=== PATIENT | female | born 1950 | race African-American/Black ===

== ENCOUNTER 2020-10-20 15:58 | Emergency (ER) | payer MEDICARE, MEDICAID ==
[~2020-10-20] VITALS: Ht 165.1 cm; Wt 50.5 kg
[~2020-10-20 15:58] MED LIST: 00186-0370-20 IH; ACIDOPHILIS PO; ALBUTEROL0.83 MG/ML IH; APRESOLINE 10MG10 MG PO; APRESOLINE 25MG25 MG PO; ASPIRIN E.C. 8181 MG PO; ATROVENT I0.2 MG/1 M IH; CALCIUM 600-D 61 TAB PO; CARDURA4 MG PO; CLARITIN 1010 MG/TAB PO; COLACE 100100 MG/CAP PO; COREG12.5 MG PO; EFFEXOR XR37.5 MG/CA PO; EFFEXOR XR75 MG/CAP PO; ESTRACE0.5 MG PO; FERRO-TIME325 MG PO; FLONASEALLERGY NS; FOLIC ACID 11 MG/TA1 PO; GENTLE LAXATIVE10 MG RC; IPRATROPIUM BROM3 M1 IH; K-DUR20 MEQ PO; LASIX 20MG TABL20 MG PO; LEVAQUIN 5500 MG/TA1 PO; LIPITOR 40MG TA40 MG PO; LOPRESSOR 550 MG/TAB PO; MASON NATURAL2000 IU PO; MELATONIN1 MG PO; MIRALAX PA17 GM/Dose PO; MOTRIN 200200 MG/TAB PO; MUCINEX 60600 MG/TA1 PO; NEURONTIN100 MG/CAP PO; NEXIUM 20MG20 MG PO; NITROSTAT0.4 MG/TAB SL; NORCO 325 MG-51 TAB PO; NORVASC 10MG10 MG PO; OSCAL 500 TAB500 MG PO; PERFOROMIS20 MCG/2 M IH; PREDNISONE10 MG PO; PRILOSEC 20MG20 MG PO; PRILOTC PO; PROCARDIA XL90 MG PO; PROTONIX 40MG T40 MG PO; PULMICORT0.5 MG/2 M IH; SINGULAIR 110 MG/TAB PO; TYLENOL 500MG500 MG PO; VENTOLIN0.09 MG IH; VITAMIN D32000 I1 PO; VITAMIN E 400 U4001 PO; ZITHROMAX Z PA250 MG PO
[2020-10-20 16:37] LABS: COLLECTION METHOD CLEAN CATCH
[2020-10-20 16:46] LABS: MUCOUS Present /lpf; PH 5 (5-8); SQUAMOUS EPITHELIAL 20-50 /hpf; URINE APPEARANCE Cloudy; URINE BACTERIA Rare /hpf; URINE BILIRUBIN Negative (NEGATIVE); URINE BLOOD Negative (NEGATIVE); URINE COLOR Yellow; URINE GLUCOSE Negative (NEGATIVE); URINE KETONE Negative (NEGATIVE); URINE LEUKOCYTE ESTERASE Negative (NEGATIVE); URINE NITRATE Negative (NEGATIVE); URINE PROTEIN(semi-quant) 2+ (NEGATIVE)
[2020-10-20] MEDS ORDERED: CEPHALEXIN500 M1 PO (17:30)
[2020-10-20 18:40] VITALS: BP 128/73; PULSE 78; TEMP 98.1
== END 2020-10-20 18:40 | disposition home or self-care (01) ==
LOC: COL.ER 15:58
PROVIDERS: Nurse Practitioner Primary Care
DX: N39.0 Urinary tract infection, site not specified (principal); I13.0 Hypertensive heart and chronic kidney disease with heart failure and stage 1 through stage 4 chronic kidney disease, or unspecified chronic kidney disease; N18.9 Chronic kidney disease, unspecified; J44.9 Chronic obstructive pulmonary disease, unspecified; D64.9 Anemia, unspecified; Z88.0 Allergy status to penicillin; Z88.6 Allergy status to analgesic agent; Z88.1 Allergy status to other antibiotic agents; Z88.8 Allergy status to other drugs, medicaments and biological substances; Z79.82 Long term (current) use of aspirin; Z79.51 Long term (current) use of inhaled steroids; F17.210 Nicotine dependence, cigarettes, uncomplicated

== ENCOUNTER 2020-12-16 14:24 | Emergency (ER) | payer MEDICARE, MEDICAID ==
[~2020-12-16] VITALS: Ht 165.1 cm; Wt 54.1 kg
[~2020-12-16 14:24] MED LIST changes: +CEPHALEXIN500 M1 PO
[2020-12-16 14:30] VITALS: TEMP 98.3
[2020-12-16 15:27] LABS: BASO % 0.3 % (0.0-2.0); EOS # 0.2 (0.0-0.7); EOS % 2.1 % (0-4.0); GRAN # 5.1 (1.4-6.5); GRAN % 66.7 % (42.2-75.2); HEMATOCRIT 32.9 % (37.0-47.0); HEMOGLOBIN 10.6 g/dl (12.5-16.0); LYMPH # 1.1 (1.2-3.4); LYMPH % 14.9 % (20.0-51.0); MEAN CELL VOLUME 86 fl (80.0-100.0); MEAN CORPUSCULAR HEMOGLOBIN 28 pg (27.0-31.0); MEAN CORPUSCULAR HGB CONC 32 g/dl (33.0-37.0); MEAN PLATELET VOLUME 11.7 fl (7.4-10.4); MONO # 1.2 (0.1-0.6); MONO % 15.7 % (1.7-9.3); PLATELET COUNT 197 K/mm3 (130-400); RED BLOOD COUNT 3.85 M/mm3 (4.10-5.30); REDCELL DISTRIBUTION WIDTH-CV 17.6 % (11.5-14.5)
[2020-12-16 15:46] LABS: ALBUMIN 3.4 gm/dL (3.5-5.0); BILIRUBIN,TOTAL 0.8 mg/dL (0.0-1.0); CALCIUM 8.7 mg/dL (8.4-10.2); CREATININE, serum 4.28 (0.52-1.25); POTASSIUM 4.6 mmol/L (3.4-5.0); TOTAL PROTEIN 6.6 gm/dL (6.4-8.2)
[2020-12-16 15:47] LABS: C-REACTIVE PROTEIN 0.5 mg/dL (0.0-0.9)
[2020-12-16 16:03] VITALS: BP 164/88; PULSE 83
== END 2020-12-16 16:03 | disposition home or self-care (01) ==
LOC: COL.ER 14:24
PROVIDERS: Nurse Practitioner Primary Care
DX: M79.601 Pain in right arm (principal); I12.0 Hypertensive chronic kidney disease with stage 5 chronic kidney disease or end stage renal disease; D63.1 Anemia in chronic kidney disease; N18.6 End stage renal disease; J44.9 Chronic obstructive pulmonary disease, unspecified; E78.5 Hyperlipidemia, unspecified; K21.9 Gastro-esophageal reflux disease without esophagitis; I25.2 Old myocardial infarction; F17.200 Nicotine dependence, unspecified, uncomplicated; Z99.2 Dependence on renal dialysis; Z88.0 Allergy status to penicillin; Z88.5 Allergy status to narcotic agent; Z88.1 Allergy status to other antibiotic agents; Z88.8 Allergy status to other drugs, medicaments and biological substances; Z79.82 Long term (current) use of aspirin; Z79.899 Other long term (current) drug therapy; Z79.51 Long term (current) use of inhaled steroids

== ENCOUNTER → 2021-01-07 | Outpatient (CLI) | payer MEDICARE, MEDICAID ==
[2021-01-07 12:43] LABS: HEMOGLOBIN 11.3 g/dl (12.5-16.0)
[2021-01-07 12:45] LABS: HEMATOCRIT 36.6 % (37.0-47.0)
== END ==
LOC: ZCOL.LAB 11:47
PROVIDERS: Internal Medicine Nephrology
DX: N18.6 End stage renal disease (principal)

== ENCOUNTER → 2021-01-14 | Outpatient (CLI) | payer MEDICARE, MEDICAID | LOC: ZCOL.LAB 16:05 | DX: I13.2 Hypertensive heart and chronic kidney disease with heart failure and with stage 5 chronic kidney disease, or end stage renal disease (principal) ==

== ENCOUNTER 2021-02-04 08:14 | Emergency (ER) | payer MEDICARE, MEDICAID ==
[~2021-02-04] VITALS: Ht 165.1 cm; Wt 51.8 kg
[2021-02-04 08:22] VITALS: TEMP 97.7
[2021-02-04 09:52] LABS: BASO % 0.5 % (0.0-2.0); EOS # 0.2 (0.0-0.7); EOS % 2.6 % (0-4.0); GRAN # 4.7 (1.4-6.5); GRAN % 70.8 % (42.2-75.2); LYMPH # 0.8 (1.2-3.4); LYMPH % 11.8 % (20.0-51.0); MEAN CELL VOLUME 85 fl (80.0-100.0); MEAN CORPUSCULAR HGB CONC 32 g/dl (33.0-37.0); MEAN PLATELET VOLUME 11.4 fl (7.4-10.4); MONO # 0.9 (0.1-0.6); PLATELET COUNT 189 K/mm3 (130-400); RED BLOOD COUNT 3.27 M/mm3 (4.10-5.30); REDCELL DISTRIBUTION WIDTH-CV 16.8 % (11.5-14.5)
[2021-02-04 09:53] LABS: HEMATOCRIT 27.8 % (37.0-47.0); HEMOGLOBIN 8.9 g/dl (12.5-16.0); MEAN CORPUSCULAR HEMOGLOBIN 27 pg (27.0-31.0)
[2021-02-04 10:01] LABS: ALBUMIN 2.9 gm/dL (3.5-5.0); CALCIUM 8.3 mg/dL (8.4-10.2); CREATININE, serum 3.55 (0.52-1.25); TOTAL PROTEIN 5.9 gm/dL (6.4-8.2)
[2021-02-04 11:19] VITALS: BP 200/78; PULSE 59
== END 2021-02-04 11:19 | disposition home or self-care (01) ==
LOC: COL.ER 08:14
PROVIDERS: Family Medicine
DX: R41.82 Altered mental status, unspecified (principal); R45.82 Worries; L98.8 Other specified disorders of the skin and subcutaneous tissue; D63.1 Anemia in chronic kidney disease; I12.0 Hypertensive chronic kidney disease with stage 5 chronic kidney disease or end stage renal disease; N18.6 End stage renal disease; E78.5 Hyperlipidemia, unspecified; J44.9 Chronic obstructive pulmonary disease, unspecified; I25.2 Old myocardial infarction; K21.9 Gastro-esophageal reflux disease without esophagitis; Z99.2 Dependence on renal dialysis; Z99.81 Dependence on supplemental oxygen; Z79.82 Long term (current) use of aspirin; Z79.51 Long term (current) use of inhaled steroids; Z79.899 Other long term (current) drug therapy

== ENCOUNTER 2021-02-18 03:35 | Emergency (ER) | payer MEDICARE, MEDICAID ==
[~2021-02-18] VITALS: Ht 165.1 cm; Wt 51.4 kg
[2021-02-18 03:40] VITALS: TEMP 98.1
[2021-02-18 03:59] LABS: BASO % 0.4 % (0.0-2.0); EOS # 0.2 (0.0-0.7); GRAN # 4.8 (1.4-6.5); GRAN % 65.5 % (42.2-75.2); LYMPH # 1.1 (1.2-3.4); LYMPH % 14.4 % (20.0-51.0); MEAN CELL VOLUME 89 fl (80.0-100.0); MEAN CORPUSCULAR HGB CONC 31 g/dl (33.0-37.0); MEAN PLATELET VOLUME 11.4 fl (7.4-10.4); MONO # 1.2 (0.1-0.6); MONO % 16.3 % (1.7-9.3); PLATELET COUNT 219 K/mm3 (130-400); RED BLOOD COUNT 2.98 M/mm3 (4.10-5.30); REDCELL DISTRIBUTION WIDTH-CV 17.2 % (11.5-14.5)
[2021-02-18 04:00] LABS: HEMATOCRIT 26.4 % (37.0-47.0); HEMOGLOBIN 8.3 g/dl (12.5-16.0); MEAN CORPUSCULAR HEMOGLOBIN 28 pg (27.0-31.0)
[2021-02-18 04:12] LABS: ALBUMIN 2.9 gm/dL (3.5-5.0); BILIRUBIN,TOTAL 1.2 mg/dL (0.0-1.0); CALCIUM 8.8 mg/dL (8.4-10.2); CREATININE, serum 3.35 (0.52-1.25); POTASSIUM 3.9 mmol/L (3.4-5.0); TOTAL PROTEIN 6.1 gm/dL (6.4-8.2)
[2021-02-18 06:06] VITALS: BP 193/77; PULSE 64
== END 2021-02-18 06:06 | disposition home or self-care (01) ==
LOC: COL.ER 03:35
PROVIDERS: Personal Emergency Response Attendant
DX: R41.82 Altered mental status, unspecified (principal); S50.11XA Contusion of right forearm, initial encounter; J44.9 Chronic obstructive pulmonary disease, unspecified; E78.5 Hyperlipidemia, unspecified; I12.0 Hypertensive chronic kidney disease with stage 5 chronic kidney disease or end stage renal disease; N18.6 End stage renal disease; F17.210 Nicotine dependence, cigarettes, uncomplicated; Z79.51 Long term (current) use of inhaled steroids; Z79.899 Other long term (current) drug therapy; W01.0XXA Fall on same level from slipping, tripping and stumbling without subsequent striking against object, initial encounter; Y92.129 Unspecified place in nursing home as the place of occurrence of the external cause